=== PATIENT | male | born 1970 | race Caucasian/White ===

== ENCOUNTER 2018-01-15 21:30 | Emergency (ER) | payer SELFPAY ==
[~2018-01-15] VITALS: Ht 162.6 cm; Wt 69.4 kg
[2018-01-15 21:48] VITALS: Ht 162.6 cm; Wt 69.4 kg
[2018-01-15 23:45] LABS: microscopic required? NO
[2018-01-16] VITALS: BP 125/56
[2018-01-16 00:12] LABS: UA SPECIFIC GRAVITY 1.015 (1.005-1.035); urine erythrocyte NEGATIVE (NEGATIVE)
== END 2018-01-16 | disposition home or self-care (01) ==
LOC: ED 21:30
PROVIDERS: Emergency Medicine
DX: R10.13 Epigastric pain (principal); R10.11 Right upper quadrant pain
CPT/HCPCS: 83880; Q0092

== ENCOUNTER 2018-05-04 16:01 | Emergency (ER) | payer MEDICAID ==
[2018-05-04 18:17] LABS: CALCIUM 8.4 mg/dL (8.5-10.1); CARBON DIOXIDE 28.5 mmol/L (21-32); CHLORIDE SERUM 105 mmol/L (98-107); GFR1 > 60 mL/min; GLUCOSE SERUM 87 mg/dL (74-106); POTASSIUM SERUM 3.9 mmol/L (3.5-5.1); SODIUM SERUM 141 mmol/L (136-145)
[2018-05-04 18:19] LABS: BASOPHIL % 0.2 % (0-2); PLATELET COUNT 294 x10^3mcL (130-400)
[2018-05-04 18:22] LABS: ALBUMIN 3.6 g/dL (3.4-5.0); ALKALINE PHOSPHATASE 127 U/L (46-116); ALT/SGPT 18 U/L (16-63); AST/SGOT 16 U/L (15-37); BILIRUBIN TOTAL 0.22 mg/dL (0.20-1.00); LIPASE 199 IU/L (73-393); TOTAL PROTEIN, SERUM 7.6 g/dL (6.4-8.2)
[2018-05-04 18:29] LABS: RED CELL DISTRIBUTION WIDTH 15.7 % (11.5-14.5)
[2018-05-04 20:39] VITALS: BP 129/72
== END 2018-05-04 20:39 | disposition home or self-care (01) ==
LOC: ED 16:01
PROVIDERS: Emergency Medicine
DX: K57.90 Diverticulosis of intestine, part unspecified, without perforation or abscess without bleeding (principal); K42.9 Umbilical hernia without obstruction or gangrene; K62.89 Other specified diseases of anus and rectum
CPT/HCPCS: 36415

== ENCOUNTER 2019-09-10 20:21 | Emergency (ER) | payer SELFPAY ==
[~2019-09-10] VITALS: Ht 165.1 cm; Wt 73.9 kg
[2019-09-10 20:38] VITALS: Ht 165.1 cm; Wt 73.9 kg
[2019-09-10 23:33] LABS: BASOPHIL % 0.2 % (0-2); PLATELET COUNT 216 x10^3mcL (130-400); RED CELL DISTRIBUTION WIDTH 14.5 % (11.5-14.5)
[2019-09-10 23:45] LABS: CALCIUM 8.7 mg/dL (8.5-10.1); CARBON DIOXIDE 22.5 mmol/L (21-32); CHLORIDE SERUM 104 mmol/L (98-107); CREATININE SERUM 1.1 mg/dL (0.7-1.3); GFR1 > 60 mL/min; GLUCOSE SERUM 91 mg/dL (74-106); SODIUM SERUM 136 mmol/L (136-145)
[2019-09-10 23:50] LABS: ALBUMIN 3.5 g/dL (3.4-5.0); ALKALINE PHOSPHATASE 92 U/L (46-116); ALT/SGPT 20 U/L (16-63); AST/SGOT 23 U/L (15-37); BILIRUBIN TOTAL 0.3 mg/dL (0.20-1.00); TOTAL PROTEIN, SERUM 7.2 g/dL (6.4-8.2)
[2019-09-11 03:33] VITALS: BP 119/79
== END 2019-09-11 03:33 | disposition home or self-care (01) ==
LOC: ED 20:21
PROVIDERS: Specialist
DX: K92.2 Gastrointestinal hemorrhage, unspecified (principal); J11.1 Influenza due to unidentified influenza virus with other respiratory manifestations
CPT/HCPCS: 36415; 87804